=== PATIENT | male | born 1995 | race African-American/Black ===

== ENCOUNTER 2016-12-16 02:05 | Inpatient (IN) | payer OTHER ==
--- OUTSIDE RECORDS SUMMARY | 2016-12-16 02:07 | XMS | Clinical Summary ---
:1995 Author Organization [facility] Address [address] [place] [address] Phone Care Team Providers Name Role Phone , Primary Care Provider Unavailable Allergies Not on File Current Medications Not on file Active Problems Not on file Social History Tobacco Use Types Packs/Day Years Used Date Never Assessed Sex Assigned at Date Recorded Not on file Last Filed Vital Signs Not on file Plan of Treatment Not on file Results Not on filefrom Last 3 Months
[2016-12-16] MEDS ORDERED: Lorazepam 2 MG/ML VIAL ONE (02:08)
[2016-12-16] MEDS ORDERED: Fosphenytoin Sodium 1,500 MG in Sodium Chloride 0.9% 100 ML IVPB SCH (02:45)
[2016-12-16 02:55] LABS: Prothrombin Time 13.3 SEC (12.0-14.7)
[2016-12-16 03:07] LABS: Band 1 % (5-11); Hematocrit 56.1 % (42.0-52.0); Mean Platelet Volume 9.1 fL (7.4-10.4); Neutrophil 52 % (31-61); Red Blood Cell (RBC) Count 6.19 mill/uL (4.00-5.20); White Blood Cell (WBC) Count 10.4 thou/uL (4.8-10.8)
[2016-12-16 03:15] LABS: PTT 20.7 SEC (22.9-36.1)
[2016-12-16 03:25] LABS: AST (SGOT) 37 U/L (5-34); Anion Gap 25 mmol/L (10-20); Protein, Total 9.6 g/dL (6.0-8.3)
[2016-12-16 03:36] LABS: ALT (SGPT) 36 U/L (8-55); Alkaline Phosphatase 192 U/L (Less than 750); BUN (Urea Nitrogen) 18 mg/dL (8.9-20.6); Bilirubin, Total 0.2 mg/dL (0.2-1.2); Calc. Creatinine Clearance 0 mL/min (70-130); Calcium 11.1 mg/dL (7.8-10.44); Carbon Dioxide 16 mmol/L (22-29); Chloride 109 mmol/L (98-107); Estimated GFR-MDRD 59; Globulin 5.3 g/dL (2.4-3.5)
[2016-12-16 04:22] LABS: Amphetamine Not Detected (NotDetected); Methamphetamine Not Detected (NotDetected)
[2016-12-16 04:23] LABS: Methadone Not Detected (NotDetected)
[2016-12-16] MEDS ORDERED: Sodium Chloride 0.9% 100 ML ONE (04:26)
[2016-12-16 04:29] LABS: Glucose, Urine (Dipstick) Negative (Negative); Protein, Urine (Dipstick) > or equal to 300 mg/dL (Neg-Trace)
[2016-12-16 04:30] LABS: Blood, Urine Unable to Interpret (Negative); Nitrite Unable to Interpret (Negative); Urobilinogen UNABLE TO INTERPRET mg/dL (0.2-1.0)
[2016-12-16 04:31] LABS: Bilirubin Negative (Negative); Ketone, Urine Trace mg/dL (Negative)
[2016-12-16 04:33] LABS: RBC/HPF GREATER THAN 50-TNTC HPF (0-3)
[2016-12-16 04:35] LABS: Renal Epithelial 0-3 HPF (0-3)
[2016-12-16 04:36] LABS: Bacteria/HPF Rare-Few HPF (None Seen)
[2016-12-16 04:37] LABS: Hyaline Casts/LPF NONE SEEN LPF (0-3 Hyaline)
[2016-12-16 04:39] LABS: Squamous Epithelial 0-3 HPF (0-3)
[2016-12-16] MEDS ORDERED: Acetaminophen 325 MG TAB PO PRN (05:41)
[2016-12-16] MEDS ORDERED: Ondansetron HCl/PF 4 MG/2 ML Vial IVP PRN (05:41)
[2016-12-16] MEDS ORDERED: Acetaminophen 650 MG Suppository PR PRN (05:41)
[2016-12-16] MEDS ORDERED: Lorazepam 2 MG/ML VIAL SLOW IVP PRN (05:41)
[2016-12-16] MEDS ORDERED: Albuterol Sulfate 2.5 mg/3 ml Neb NEB PRN (05:41)
[2016-12-16] MEDS ORDERED: Levofloxacin 500 mg/D5W 100 ml Premix Bag IVPB SCH (06:00)
--- NOTE | 2016-12-16 06:36 | HP ---
REASON FOR ADMISSION: Status epilepticus. HISTORY OF PRESENT ILLNESS: Please note the majority of this history is obtained by my talking to the patient's parents, both present at bedside, as the patient is nonverbal and is on chronic ventilator. Mom was apparently changing his diaper early this morning when she found blood. She called EMS. When EMS arrived, the patient had a grand mal seizure. They picked him up from [place] and en route he had another episode of seizure. He had a total of 4 episodes of grand mal seizure. These are new in onset. He has significant history of 2 prior strokes, one at 9 years of age and other one at 12 years of age. The one at 12 years of age has severely disabled him and since then he is vent dependent with tracheostomy and PEG feeding. Patient barely opens one eye and is nonverbal. He has received a total of 4 mg of Ativan which has controlled his seizure and on arrival here he was placed on fosphenytoin loading dose. PAST MEDICAL AND SURGICAL HISTORY: History of 2 strokes in the past, one at 9 years of age, which was the first one and 12 years of age, which was a disabling stroke. Per parents, he was born normal and was active until 9 years of age when he sustained the first stroke. PEG tube, tracheostomy, chronic ventilator, diabetes insipidus, hypogonadism, hypopituitarism, hypothyroidism. CURRENT MEDICATIONS: Levothyroxine 77 mcg daily, gentamicin nebulizer 3 times daily, Levsin 1.25 mg sublingual q.6 hours p.r.n., testosterone shots 100 mg intramuscular every 30 days, desmopressin 0.1 mL subcu 2 times daily, albuterol nebulizer q.6 h. p.r.n., hydrocortisone 7.5 mg p.o. twice daily, thiamine 50 mg daily, MiraLax 17 grams daily, multivitamin 1 tab daily, diazepam 3 mg twice daily, Levocarnitine 330 mg 2 times daily. ALLERGIES: Allergic to PAPER DIAPERS, PAPER TAPE. PERSONAL HISTORY: Does not abuse alcohol or drugs. No history of smoking. FAMILY HISTORY: Father has hypertension and diabetes. REVIEW OF SYSTEMS: Cannot be obtained as the patient is nonverbal. PHYSICAL EXAMINATION: GENERAL: The patient is a 21-year-old male who essentially has quadriplegia due to his stroke he sustained when he was 13 years old. VITAL SIGNS: Blood pressure 136/110, pulse 100 per minute, respiratory rate 24 per minute, temperature 100.7 degrees Fahrenheit, saturating 100% on ventilator. NECK: Supple, no elevated JVD. HEENT: Oral cavity; mucous membranes are dry. Patient keeps poking his lips which is normal per family at bedside. He has a tracheostomy in place. CARDIOVASCULAR: S1, S2 heard, tachycardic. RESPIRATORY: Air entry 1+ bilateral. Scattered rhonchi plus bilateral. No wheezes or rales. ABDOMEN: Soft. PEG tube is in place. : Barth catheter has simone blood in it. DREDGE PUMP OPERATOR: The patient is quadriplegic with complete wasting of all 4 extremities including foot drop bilaterally. He has contractures of all 4 extremities as well. PSYCHIATRIC: Cannot be assessed due to the patient being nonverbal. LABORATORY AND X-RAY FINDINGS: White count of 10, H\T\H 18 and 56, platelet count 300 with 52% neutrophils, PT/INR 13 and 1.0, PTT 20, sodium 141. Serum bicarbonate 16, BUN 18, creatinine 1.7, glucose is 67. Lactic acid is 6.0, calcium is 11, albumin is 4.5. Prolactin is 10.2. Urine drug screen is positive for benzodiazepines. CT brain and chest x-ray, official reports are pending. CLINICAL IMPRESSION AND PLAN: The patient will be admitted to ICU for status epilepticus. The patient has known history of massive CVA at the age of 12 and likely the source of his current seizure could be from his prior CVA. He has been loaded up with fosphenytoin and we will continue the same. We will continue all his home medications as before. The patient has panhypopituitarism. He is on hydrocortisone at home. We will switch him over to Solu-Medrol for now. We will consult Pulmonology, Urology and Neurology gis consultant. CODE STATUS: Full. I have discussed this with both parents who are at bedside. We will continue to closely monitor him in ICU. JONNIE
--- NOTE | 2016-12-16 06:51 | CT ---
PRELIMINARY REPORT/[facility]/EMERGENCY AFTER HOURS PROCEDURE: EXAM: CT Head Without Intravenous Contrast CLINICAL HISTORY: 21 years old, male; Signs and symptoms; Altered mental status/memory loss; Confusion or disorientati on; Patient HX: AMS TECHNIQUE: Axial computed tomography images of the head/brain without intravenous contrast. COMPARISON: No relevant prior studies available. FINDINGS: No definite or depressed skull fracture. Included paranasal sinuses appear essentially clear. Mild fluid/opacity in some mastoid air cells bilaterally. This could represent acute or chronic mast oiditis. There are areas of CSF density in the suprasellar region, and medial aspects of the middle cranial f hazel bilaterally. Etiology nonspecific, possibly this could be related to old infarcts or other prior/old brain injury . This could be a developmental appearance. Arachnoid cyst(s) might be another possibility. This is almost surely a chronic appearance. Eventual comparison with any available prior exams may be helpful. No acute intracranial hemorrhage or midline shift. Ventricle size is upper range of normal. No definite acute infarct by CT. MRI could be more sensitive/specific for an acute infarct if clinically indicated. IMPRESSION: No acute intracranial hemorrhage or midline shift. Areas of CSF density in the suprasellar region, and medial aspects of the middle cranial fossa bilat erally. See above discussion. Eventual comparison with any available prior exams may be helpful. No definite acute infarct by CT, see above. Mastoid sinus findings as discussed above. Other details discussed above. Thank you for allowing us to participate in the care of your patient. Dictated and Authenticated by: Sean Cates MD 12/16/2016 3:23 AM Central Time ([place] \T\ Cee) FINAL REPORT ON [facility] STUDY: COMPARISON: MRI of the brain dated 04/23/2008. FINDINGS: Since the comparison examination, post-surgical change involving the left thalamic region with ex va cuole dilatation of the 3rd ventricle appears similar. There is enlargement of both the lateral gregorio tricles as well as the 4th ventricle which may reflect changes of a communicating hydrocephalus. No definite acute infarct is evident. No midline shift is present. There are bilateral mastoid effus ions. IMPRESSION: 1. Increasing prominence of the lateral ventricles as well as the 3rd and 4th ventricles which may r eflect a component of a communicating hydrocephalus. There is prominent cystic dilatation of the 3r d ventricle, slightly more pronounced than on the MRI in 2008. A follow-up MRI of the brain with an d without contrast is recommended for additional evaluation of this finding. Neurosurgical consulta tion is also recommended. 2. Bilateral mastoid effusions. POS: [facility]
--- NOTE | 2016-12-16 07:09 | RAD ---
AP VIEW OF CHEST: Date: 12/16/16 INDICATION: History of bleeding from the penis. COMPARISON: Prior exam dated 12/16/16. FINDINGS: Tracheostomy tube is stable. The previously seen right-sided subclavian central venous catheter has been removed. The lungs are clear. Prominent scoliosis is stable. IMPRESSION: No acute cardiopulmonary process. POS: [facility]
--- NOTE | 2016-12-16 07:31 | RAD ---
AP VIEW OF CHEST: Date: 12/16/16 INDICATION: Bleeding from the penis, status post subclavian central venous catheter placement. IMPRESSION: There is a new right subclavian central venous catheter in place. Tracheostomy tube is unchanged. Nallely ngs are clear. No definite pneumothorax is evident. Thoracic scoliosis is similar. POS: [facility]
[2016-12-16] MEDS: Dextrose 5 % And 0.9 % NaCl 1,000 ML IV SCH ×2 (07:34→14:08)
--- NOTE | 2016-12-16 08:35 | CON ---
DATE OF CONSULTATION: 12/16/2016 INPATIENT CONSULTATION: PRIMARY CARE PHYSICIAN: Dr. Villarreal. REASON FOR CONSULTATION: Genitourinary consultation for hematuria. HISTORY OF PRESENT ILLNESS: Aldo is a 21-year-old -[place]ian male, whom I had seen initially as an ER consultation back in 01/2016 for gross hematuria. The patient with extensive complicated history. He presented at that time with gross hematuria, renal insufficiency, workup demonstrated evidence of hemorrhagic cystitis, bladder biopsy negative for malignancy. The patient is managed by his family with clean intermittent catheterization for neurogenic bladder. Patient has transferred his care to [facility] with Dr. Chava Pinto. He is currently admitted as EMS brought the patient due to acute seizure activity. The patient was also noted to have some blood in his diaper per review of chart. Family is not around the bedside at this time. The patient is currently in ICU setting due to status epilepticus with history of CVA at age 12. The patient does have a history of CVA, multiple strokes, quadriplegic, tracheostomy and PEG dependent. He also has a history of adrenal insufficiency, diabetes insipidus, and is nonverbal. He does have extensive family support, who manages his neurogenic bladder with CICs. Prior CT scan dating 01/2016 demonstrated [id number] hydroureteronephrosis to the level of the bladder with thickened bladder wall, which was chronic in nature. Lasix renal scan demonstrated no evidence of obstructive component and hydronephrosis is due to noncompliant neurogenic bladder. He did undergo workup for hematuria, cystoscopy demonstrating diffuse hemorrhagic cystitis with trabeculation, bladder neck open consistent with neurogenic bladder. Bladder biopsies were negative for malignancy. I informed the family on last admission to continue his Levsin [id number] every 4 to 6 hours and CIC, as they have been performing in the past. Subsequently, he has transferred his care to [facility]. PAST MEDICAL HISTORY: Encephalopathy, quadriplegic, since 07/2007 secondary to multiple CVA; respiratory failure, on chronic tracheostomy/ventilator support; history of CVA at 9 years of age; history of central diabetes insipidus; panhypopituitarism; diabetes, type 2; history of gross hematuria; neurogenic bladder; history of nonobstructing right hydronephrosis, on renal scan; history of hypogonadism, on testosterone replacement by a pediatric bursar, Dr. Tirado, in [place]. PAST SURGICAL HISTORY: Tracheostomy/G-tube , 01/2016, status post cystoscopy, random bladder biopsy, right retrograde pyelogram. CURRENT MEDICATIONS: Tylenol, Ventolin, DDAVP, Pepcid, Levsin 0.25 mg sublingual every 6 hour as scheduled, currently on Levaquin, Ativan, Solu-Medrol , Zofran, thiamine. ALLERGIES: Allergic to PAPER DIAPERS, PLASTIC TAPE. PHYSICAL EXAMINATION: GENERAL: The patient is nonverbal, on tracheostomy. Spontaneous movement of extremities as noted. VITAL SIGNS: 136/110-100, pulse 24, temperature 100.7 on admission. There is no current vital signs in chart. GENERAL: The patient on tracheostomy, nonverbal. HEENT: Mucous members are dry. ABDOMEN: Soft, protuberant. PEG tube is in place. GENITOURINARY: A 16-Lux[place]bourgish Barth catheter draining pink urine. I irrigated the Barth catheter at bedside with no evidence of clots. PERTINENT LABS AND IMAGIN. White count 10, hemoglobin 18, platelets 300. INR is 1.0, PTT of 20. Admitting creatinine of 0.78, baseline creatinine variable from 0.9-1.8. Urinalysis demonstrates red urine, greater than 300 protein, unable to interpret leukocytes, greater than 50 RBCs, 4-6 WBCs, no epithelials, rare bacteria. Cultures have been sent by the emergency room. 2. CT of the brain on admission demonstrates prominence of the lateral ventricles as well as third and fourth ventricle reflecting a component of communicating hydrocephalus. No definite acute infarct is appreciated. 3. CT of the abdomen and pelvis, 01/2016, [id number] right hydroureteronephrosis to the level of the bladder with thickened bladder wall, stable in comparison from prior CT. 4. Lasix renal scan, 01/2016, no gross evidence of obstruction. IMPRESSION AND PLAN: Aldo is a 21-year-old male with history of multiple comorbidities, respiratory failure, multiple cerebrovascular accidents, quadriplegic, tracheostomy and PEG dependent. Urologic consultation obtained due to hematuria. This has been worked up in the past with no evidence of malignancy, no evidence of functional obstruction. DVT prophylaxis, anticoagulation on hold as he has evidence of hematuria. H/o Neurogenic bladder, likely low compliance with secondary hydroureteronephrosis. Workup demonstrated no evidence of functional obstruction. Previous cystoscopy and bladder biopsy negative for malignancy. Patient currently admitted for hematuria, which is mild in nature at this time with pink-tinged urine. Urine culture has been sent, currently on Levaquin. I do recommend indwelling Barth catheter for now, to monitor urine output and renal function. Continue Levsin as scheduled [id number] for bladder spasms. When the patient is discharged, he will resume his care with his urologist,, resume CIC by family as previous; family has transferred his care from my practice. JONNIE
[2016-12-16] MEDS ORDERED: LEVOCARNITINE 330 MG PO SCH (09:00)
[2016-12-16] MEDS: Hyoscyamine Sulfate SL 0.125 mg Tablet SL SCH ×4 (09:16→20:52)
[2016-12-16] MEDS: LEVOCARNITINE 330 MG PO SCH (09:16)
[2016-12-16] MEDS: Famotidine/PF 20 mg/2ml Vial SLOW IVP SCH ×2 (09:16→20:49)
--- NOTE | 2016-12-16 09:57 | PDOC.PN ---
- Subjective Encounter Start Date: 12/16/16 Encounter Start Time: 09:55 Subjective: nonverbal, no seizure activity - Objective Resuscitation Status: Resuscitation Status FULL:Full Resuscitation MAR Reviewed: Yes Vital Signs & Weight: Vital Signs (12 hours) Temp Pulse Resp Pulse Ox 12/16/16 07:45 97.3 F L 113 H 12 100 12/16/16 07:44 97.3 F L 12/16/16 06:41 97.6 F Weight Weight 102 lb 1.184 oz Most Recent Monitor Data Heart Rate from ECG 112 NIBP 118/95 NIBP BP-Mean 103 Respiration from ECG 12 SpO2 100 I&O: 12/15/16 12/16/16 12/17/16 06:59 06:59 06:59 Output Total 900 200 Balance -900 -200 Result Diagrams: 12/16/16 02:35 12/16/16 02:35 Phys Exam - Physical Examination Constitutional: NAD Neck: no JVD Respiratory: clear to auscultation bilateral Cardiovascular: RRR, no significant murmur Gastrointestinal: soft, positive bowel sounds Musculoskeletal: no edema contracted hands, feet Dx/Plan (1) Status epilepticus Code(s): G40.901 - EPILEPSY, UNSP, NOT INTRACTABLE, WITH STATUS EPILEPTICUS Status: Acute (2) Chronic respiratory failure Code(s): J96.10 - CHRONIC RESPIRATORY FAILURE, UNSP W HYPOXIA OR HYPERCAPNIA Status: Chronic Qualifiers: Respiratory failure complication: unspecified whether with hypoxia or hypercapnia Qualified Code(s): J96.10 - Chronic respiratory failure, unspecified whether with hypoxia or hypercapnia (3) Hematuria Code(s): R31.9 - HEMATURIA, UNSPECIFIED Status: Acute Qualifiers: Hematuria type: unspecified type Qualified Code(s): R31.9 - Hematuria, unspecified (4) CVA, old, dysphagia Code(s): I69.391 - DYSPHAGIA FOLLOWING CEREBRAL INFARCTION Status: Chronic Comment: PEG tube in place (5) Diabetes insipidus Code(s): E23.2 - DIABETES INSIPIDUS Status: Chronic (6) Polycythemia Code(s): D75.1 - SECONDARY POLYCYTHEMIA Status: Chronic Comment: May be related to chronic respiratory failure(Hypoxemia) or underlying myeloproliferative process. - Plan cont iv dilantin -: cont vent(chronic-homebound) -: await consultants opinions * .
[2016-12-16] MEDS: Fosphenytoin Sodium 100 MG in Sodium Chloride 0.9% 50 ML IVPB SCH ×2 (10:17→18:08)
--- NOTE | 2016-12-16 12:04 | CON ---
DATE OF CONSULTATION: 12/16/2016 Aldo Arteaga is an unfortunate 21-year-old gentleman who has been on home vent for the last 10 year s following a cerebrovascular accident. His nurse works with him for many years, who is at the bedside, he tells me that the patient has had strokes in the past with a history of previous grand mal seizures. The present episode, according to him he was having some hematuria and was brought to the ER. He apparently seized, he was given A tivan. He is now in ICU on the vent. Apparently he received a total of 4 mg of Ativan, controlled his seizures. Neurology was consulted. EEG is being ordered. PAST MEDICAL HISTORY: Past medical history is currently outlined, previous cerebrovascular acciden t, disabling. He has been vent dependent, feeding dependent with a trach tube and PEG in place. He additionally has had previous evidence of hypothyroidism and hypopituitarism. SOCIAL HISTORY: No evidence of any alcohol or tobacco abuse. MEDICATIONS LIST: Carnitor, thiamine, testosterone 100 mg, potassium, MiraLax, Synthroid 137, hydro cortisone 100 IM, hydrocortisone 7.5 twice a day, gentamicin 80 mg inhalation treatment 3 times a da y. Diazepam, DDAVP (desmopressin acetate) 0.1 0.1 SC b.i.d., albuterol inhaler. It appears he will be started back on his usual home medications plus he was getting Dilantin. ALLERGIES: Apparently none. PHYSICAL EXAMINATION: GENERAL: He is on the vent, pretty much unresponsive which is chronic as per the imcu specialist. VITAL SIGNS: Pulse 101, blood pressure 106/60, sats 100%, respirations 12. CHEST: Chest revealed decreased breath sounds, no wheezing. CARDIAC: Normal S1, S2. No gallops. Creatinine 1.78. His lactic acid is 2.3, white count 10,000, H\T\H 8 and 56 His chest x-ray shows trach in place, elevated left hemidiaphragm, but no other infiltrates were see n. He had a CT brain done yesterday which showed increasing prominence of lateral ventricles. There is some suggestion of hydrocephalus. Awaiting Neurology input. IMPRESSION: 1. Chronic respiratory failure secondary to a cerebrovascular accident. 2. Chronically elevated left hemidiaphragm. 3. Feeding tube, PEG in place. 4. Seizure disorder. 5. Abnormal MRI. PLAN: Awaiting for Neurology. Pulmonary butler, continue vent support, neb treatments. I will notif y Dr. Naidu. One-half critical care time.
[2016-12-16] MEDS ORDERED: FLU VACC QS2017-18 36 mo. & older 0.5 ML SYRINGE IM ONE (21:00)
[2016-12-17] MEDS: Hyoscyamine Sulfate SL 0.125 mg Tablet SL SCH ×6 (00:47→21:33)
[2016-12-17] MEDS: Fosphenytoin Sodium 100 MG in Sodium Chloride 0.9% 50 ML IVPB SCH (01:44)
[2016-12-17 04:10] LABS: #Lymphocytes 2.1 thou/uL (1.20-3.40); #Monocytes 0.3 thou/uL (0.11-0.59); #Neutrophils 8.1 thou/uL (1.40-6.50); %Basophils 0.1 % (0.0-1.0); %Eosinophils 0.4 % (0.0-10.0); %Monocytes 3.2 % (0.0-4.0); Hematocrit 41.8 % (42.0-52.0); Mean Platelet Volume 9.2 fL (7.4-10.4); Red Blood Cell (RBC) Count 4.56 mill/uL (4.00-5.20); White Blood Cell (WBC) Count 10.7 thou/uL (4.8-10.8)
[2016-12-17 04:24] LABS: ALT (SGPT) 16 U/L (8-55); AST (SGOT) 14 U/L (5-34); Alkaline Phosphatase 121 U/L (Less than 750); Anion Gap 11 mmol/L (10-20); BUN (Urea Nitrogen) 15 mg/dL (8.9-20.6); Bilirubin, Total Less than 0.2 mg/dL (0.2-1.2); Calc. Creatinine Clearance 52 mL/min (70-130); Calcium 9.4 mg/dL (7.8-10.44); Carbon Dioxide 15 mmol/L (22-29); Chloride 127 mmol/L (98-107); Estimated GFR-MDRD 74; Globulin 3.1 g/dL (2.4-3.5); Protein, Total 6.2 g/dL (6.0-8.3)
[2016-12-17] MEDS ORDERED: Levofloxacin 500 mg/D5W 100 ml Premix Bag IVPB SCH (05:00)
--- NOTE | 2016-12-17 07:17 | PRG ---
DATE OF SERVICE: 12/17/2016 SUBJECTIVE: No change, the patient is nonverbal. PHYSICAL EXAMINATION: VITAL SIGNS: Vital signs are stable, afebrile. Urine output 1670, it has been clear. GENITOURINARY: Barth catheter is adequately secured. LABORATORY DATA: White blood cell count 10, hemoglobin 13, platelets 242, BUN 15, creatinine improved to 1.4. IMPRESSION AND PLAN: 1. Aldo is a 21-year-old male admitted for status epilepticus, urologic history of neurogenic bladder. 2. History of hematuria. Previous workup biopsy negative for malignancy, from a urologic perspective, when patient is discharged, will resume CIC as previously, his family has been performing clean intermittent catheterization. Follow up with [facility] upon discharge. Urine culture pending. Continue indwelling Barth catheter for now. MTDD
--- NOTE | 2016-12-17 07:20 | PRG ---
DATE OF SERVICE: 12/17/2016 The patient remains in the CCU. He is chronically on mechanical ventilation through a tracheostomy tube. He is demonstrating gum smacking-type movements. We are not sure whether or not this is his baseline neurological status or not. PHYSICAL EXAMINATION: VITAL SIGNS: On exam, his temperature is 98.2, pulse 56, blood pressure 98/53. A 24-hour intake 28 04, output 1670. HEENT: Remarkable for the gum smacking. NECK: Tracheostomy in good position. CHEST: He has a right subclavian central line. Lungs are otherwise clear. CARDIAC: S1 and S2 regular. ABDOMEN: Soft. PEG tube in place. EXTREMITIES: No edema. LABORATORY DATA: White blood cell count 10.7, hemoglobin 13.7, hematocrit 41.8, platelet count 242. Sodium 150, potassium 3.3, chloride 127, CO2 of 15, BUN 15, creatinine 0.4, glucose 223. Urinalys is showed too numerous to count red blood cells at the time of admission. Phenytoin level was 32. ASSESSMENT: 1. Seizure disorder. 2. Chronic respiratory failure, requiring mechanical ventilation. 3. Cerebrovascular accident. 4. Diabetes insipidus. PLAN: 1. The patient needs more free water than what he is getting. 2. We would stop the Levaquin and start a different antibiotic, because Levaquin lowers seizure thr eshold. It is not completely clear to me why he is on antibiotics at this time. 3. He can probably go home when okay with Neurology.
[2016-12-17] MEDS: Cefdinir 300 MG CAP PER TUBE SCH (08:50)
[2016-12-17] MEDS: Famotidine 20 MG TAB PER TUBE SCH ×2 (08:51→21:28)
[2016-12-17] MEDS: LEVOCARNITINE 330 MG PO SCH (08:54)
--- NOTE | 2016-12-17 09:21 | CON ---
DATE OF CONSULTATION: 12/16/2016 LOCATION: CCU C2 CONSULTING PHYSICIAN: Dr. Cota REASON FOR CONSULTATION: Seizures. HISTORY OF PRESENT ILLNESS: The history is obtained from the chart review and from the patient's parents who were present at bedside. The patient is not able to provide history. The patient is a 21-year-old male with a history of 2 strokes in the past, 1 stroke at age 9 and the second stroke at age 12 who takes baby aspirin at home, who is at baseline nonverbal and is on chronic ventilator and PEG tube, who is bed bound and requires total care. According to the parents he was completely normal up until age 9 and he has history of PEG tube and tracheostomy, chronic ventilator, diabetes insipidus, hypogonadism, hypopituitarism, hypothyroidism. According to the parents on the morning of admission mom was apparently changing the diaper when she found blood in the urine and it got worse over time and subsequently they noticed seizure that he was shaking all over, which lasted for 2-3 minutes. His blood pressure and his heart rate went up, he was not foaming at the mouth, no tongue biting. EMS picked him up from [facility] and en route he had another episode of seizure and he had 1 more in the ER, but according to the documentation, he had a total of 4 episodes of generalized, possibly grand mal seizures. They are new in onset. They denied any previous history of seizures. He was subsequently transferred to the [facility] and was admitted for further treatment. Since he has been admitted to the CCU they have not noticed any more seizure activity. According to the parents, at baseline, he has constant twitching of his mouth which is his baseline and chronic in nature. This is not acute and whenever there is stimulation he has generalized shaking for a few seconds only and then it stops. The parents state that the episode that he had this time were different from his usual shaking episodes with stimulation because the new episodes lasted for a long time and his heart rate and his blood pressure increased with the new episode. He had received a total of 4 mg of Ativan which controlled his seizures and on arrival he was also loaded with fosphenytoin and since he has been in the ICU there has been no more seizure activity. PAST MEDICAL AND SURGICAL HISTORY: As mentioned in the HPI. HOME MEDICATIONS: Please review the chart. ALLERGIES: PAPER DIAPERS and PAPER TAPE. PERSONAL HISTORY: No alcohol use, illicit drug use or smoking. FAMILY HISTORY: Hypertension and diabetes. REVIEW OF SYSTEMS: Unable to obtain. PHYSICAL EXAMINATION: VITAL SIGNS: Temperature 97.5, pulse rate 77, blood pressure 105/62, respiratory rate 12, O2 sats 100%. The patient was on chronic home ventilator, he was not on any sedation. GENERAL: Well-developed, well-nourished male in no apparent distress. HEENT: Normocephalic, atraumatic. Normal sclerae. NECK: Supple. RESPIRATORY: Clear to auscultation bilaterally. CARDIOVASCULAR: Regular rate and rhythm. NEUROLOGIC: The patient has tracheostomy and is on chronic ventilator. He is not on any sedation. He does not open his eyes to verbal or tactile stimulation. His right eye was looking straight ahead and his left eye was slightly deviated to the left, but there was no nystagmus noted. No forced deviation of eyes noted. Pupils were 5 mm bilaterally and sluggishly reactive to light which according to the parents is his baseline. The patient had twitching movements of his mouth which is chronic and baseline. No spontaneous movements noted. No tonic clonic activity noted. The patient had contractures of his hands and feet. Even with painful stimulation, there was no significant change noted except he had some brief shaking of his legs with stimulation. There was one time generalized trembling like shaking of his body noted which only lasted for a few seconds, did not appear to be seizure in nature. It was without stimulation. LABORATORY DATA: CBC with normal white cell count. Chemistry: Normal sodium, potassium, creatinine 1.78, GFR 59, glucose 67, calcium 11.1. LFTs with AST 37. Prolactin 10.21. Urinalysis showed protein, ketones and greater than 50 RBCs and 4-6 WBCs. Urine drug screen detected benzos. IMAGING: The patient had CT head done on admission, which did not show any acute intracranial hemorrhage or midline shift. No definite acute infarct. The final report mentioned is increased prominence of lateral ventricle as well as third and fourth ventricle which may reflect a component of communicating hydrocephalus, slightly more pronounced than on MRI in 2009. IMPRESSION: 1. Generalized tonic clonic seizures reported by history, new onset in nature. 2. History of strokes in the past. 3. Nonverbal, bedbound, requiring total assistance and care at baseline. RECOMMENDATIONS: 1. EEG was ordered, which does not show electrographic seizures, with the shaking episode that were recorded on the EEG it showed only EMG activity with those events, did not show seizure or epileptiform activity with those events, there are some spike activity noted, it is not clear whether this are epileptiform in nature or whether they are electrode artifact. 2. Agree with continuing the patient on Dilantin 100 mg t.i.d. IV and checking total and free Dilantin levels and adjusting his Dilantin dose based on the levels. Since this is a new onset seizures, we will see how he responds to Dilantin antiepileptic medication. 3. The facial twitching is chronic in nature and is present even at baseline, so at this point, we will wait and see how he responds to Dilantin. If needed Dilantin dose can be either maximized and a second antiepileptic medication can be added to see if the facial twitching can be controlled, but would not recommend being too aggressive in controlling that since they are chronic in nature. 4. Based on the CT scan report, the patient may benefit with MRI of the brain. 5. Continue medical management per primary team. 6. Please call us with questions. MTDD
--- NOTE | 2016-12-17 10:25 | PDOC.PN ---
- Subjective Encounter Start Date: 12/17/16 Encounter Start Time: 10:23 Subjective: nonverbal - Objective Resuscitation Status: Resuscitation Status FULL:Full Resuscitation MAR Reviewed: Yes Vital Signs & Weight: Vital Signs (12 hours) Temp Pulse Resp Pulse Ox 12/17/16 08:00 96.6 F L 58 L 12 98 12/17/16 07:00 96.6 F L 12/17/16 04:00 98.2 F 12 12/17/16 00:00 98.0 F 12 Weight Weight 102 lb 1.184 oz Most Recent Monitor Data Heart Rate from ECG 56 NIBP 97/58 NIBP BP-Mean 72 Respiration from ECG 14 SpO2 100 I&O: 12/16/16 12/17/16 12/18/16 06:59 06:59 06:59 Intake Total 2804 200 Output Total 900 1670 105 Balance -900 1134 95 Result Diagrams: 12/17/16 03:45 12/17/16 03:45 Phys Exam - Physical Examination Constitutional: NAD Neck: no JVD Respiratory: clear to auscultation bilateral Cardiovascular: RRR, no significant murmur Gastrointestinal: soft, positive bowel sounds Musculoskeletal: no edema Dx/Plan (1) Status epilepticus Code(s): G40.901 - EPILEPSY, UNSP, NOT INTRACTABLE, WITH STATUS EPILEPTICUS Status: Acute (2) Chronic respiratory failure Code(s): J96.10 - CHRONIC RESPIRATORY FAILURE, UNSP W HYPOXIA OR HYPERCAPNIA Status: Chronic Qualifiers: Respiratory failure complication: unspecified whether with hypoxia or hypercapnia Qualified Code(s): J96.10 - Chronic respiratory failure, unspecified whether with hypoxia or hypercapnia (3) Hematuria Code(s): R31.9 - HEMATURIA, UNSPECIFIED Status: Acute Qualifiers: Hematuria type: unspecified type Qualified Code(s): R31.9 - Hematuria, unspecified (4) CVA, old, dysphagia Code(s): I69.391 - DYSPHAGIA FOLLOWING CEREBRAL INFARCTION Status: Chronic Comment: PEG tube in place (5) Diabetes insipidus Code(s): E23.2 - DIABETES INSIPIDUS Status: Chronic (6) Polycythemia Code(s): D75.1 - SECONDARY POLYCYTHEMIA Status: Chronic Comment: May be related to chronic respiratory failure(Hypoxemia) or underlying myeloproliferative process. - Plan dilantin level 32, hold rpt level in am -: xavier rec MRI brain-ordered, NS consult post MRI * .
[2016-12-17] MEDS ORDERED: Polyethylene Glycol 3350 17 GM Packet PER TUBE SCH (10:30)
[2016-12-17 11:50] VITALS: BMI 18.8
[2016-12-17] MEDS ORDERED: Sodium Bicarbonate Tab 325 MG TAB PER TUBE PRN (21:11)
[2016-12-17] MEDS ORDERED: Pancrelipase DR 12000 1 CAP FS PRN (21:11)
[2016-12-17] MEDS: Hydrocortisone 10 mg Tablet PO SCH (21:27)
[2016-12-17] MEDS: Diazepam 2 MG TAB PO SCH (21:32)
[2016-12-18] MEDS: Hyoscyamine Sulfate SL 0.125 mg Tablet SL SCH ×4 (01:04→12:15)
[2016-12-18 04:31] LABS: Anion Gap 10 mmol/L (10-20); BUN (Urea Nitrogen) 18 mg/dL (8.9-20.6); Calc. Creatinine Clearance 61 mL/min (70-130); Calcium 9.1 mg/dL (7.8-10.44); Carbon Dioxide 17 mmol/L (22-29); Chloride 124 mmol/L (98-107); Estimated GFR-MDRD 88
[2016-12-18 04:55] LABS: Dilantin 31.6 ug/mL (10.0-20.0)
[2016-12-18] MEDS ORDERED: Levothyroxine Sodium 25 MCG TAB PO SCH (06:00)
[2016-12-18] MEDS ORDERED: Levothyroxine Sodium 112 MCG TAB PO SCH (06:00)
[2016-12-18] MEDS: Cefdinir 300 MG CAP PER TUBE SCH (07:45)
[2016-12-18] MEDS: Diazepam 2 MG TAB PO SCH (07:45)
[2016-12-18] MEDS: Famotidine 20 MG TAB PER TUBE SCH (07:46)
[2016-12-18] MEDS: Hydrocortisone 10 mg Tablet PO SCH (07:46)
[2016-12-18] MEDS: LEVOCARNITINE 330 MG PO SCH (07:47)
--- NOTE | 2016-12-18 08:08 | PRG ---
DATE OF SERVICE: 12/18/2016 SUBJECTIVE: He is about the same. He has no change overnight. PHYSICAL EXAMINATION: VITAL SIGNS: Temperature is 97.3, pulse 51, blood pressure 107/75, 24-hour intake 1280, output 665. HEENT: Still has facial twitching movements. NECK: Tracheostomy in good position. LUNGS: Clear to auscultation. CARDIAC: S1 and S2 regular. ABDOMEN: Soft and nontender. EXTREMITIES: No edema. LABORATORY DATA: Sodium 147, potassium 4.0, chloride 124, CO2 17, BUN 18, creatinine 1.2, and gluco se 94. ASSESSMENT: 1. Seizure disorder. 2. Chronic respiratory failure requiring mechanical ventilation. 3. Cerebrovascular accident. 4. Diabetes insipidus. PLAN: 1. His sodium has improved with the increase in his free water yesterday. 2. I believe his facial twitching is considered chronic and likely nothing further can be done abou t that at this time. 3. The patient is stable to go home from a respiratory standpoint at anytime. Family is fully awar e of how to operate the home ventilator. 4. Continue free water for his diabetes insipidus as well as his DDAVP.
[2016-12-18] MEDS ORDERED: Multivit, Pediatric w/ Fe Liq 50 ML BOT PO SCH (09:00)
--- NOTE | 2016-12-18 10:41 | PRG ---
DATE OF SERVICE: 12/18/2016 PROGRESS NOTE SUBJECTIVE: No change in mental status. PHYSICAL EXAMINATION: VITAL SIGNS: Stable, afebrile. Urine output is 1450. GENITOURINARY: Barth catheter draining pink tinged urine. I did irrigate the catheter at bedside demonstrating no significant clots. LABORATORY DATA: Urine culture demonstrates mixed cheryl. Creatinine is 1.2. IMPRESSION AND PLAN: 1. Aldo is a 21-year-old -[place] male with history of current admission due to status epilepticus. 2. History of cerebrovascular accident. 3. Quadriplegic, vent dependent. Prior hematuria workup negative for malignancy, patient has tendency for intermittent hematuria. 4. Neurogenic bladder with low compliance, with secondary hydronephrosis; not functional obstruction. The patient is to resume CIC when dc which has been performed by his family as he has great family support. He has transferred his urologic care at [facility] with Dr. Chava Pinto. Recommend patient follow up with [facility] next 1-2 week. The patient will likely be dc home today per ICU service. Dr Galdamez covering me this weekend MTDD
[2016-12-18 12:10] VITALS: TEMP 95
--- NOTE | 2016-12-18 19:00 | PDOC.EVN ---
Event Note - Event Note Event Note: d/c summary dictated # [id number]
--- NOTE | 2016-12-18 19:52 | DIS ---
DATE OF ADMISSION: 12/16/2016 DATE OF DISCHARGE: 12/18/2016 DISCHARGE DIAGNOSES: 1. Seizure disorder, controlled. 2. Old cerebrovascular accident. 3. Chronic respiratory failure. 4. Resolved hematuria. 5. Resolved status epilepticus. 6. Diabetes insipidus. 7. Urinary tract infection. 8. Polycythemia. 9. Functional quadriparesis. CONSULTANTS: Neurology, Pulmonary/Critical Care, Urology. MEDICATIONS: Reviewed. Please refer to discharge medications. HOSPITAL COURSE: The patient is a 21-year-old male with past medical history significant for multip le stroke as a child, chronic respiratory failure on home ventilator, hypothyroidism, dysphagia, sta tus post PEG, status post trach, diabetes insipidus, hypopituitarism, and hypogonadism. Patient was initially admitted from the emergency room after mother noted hematuria. He also started having mu ltiple seizures in the emergency room and was diagnosed with status epilepticus. In the ER, the pat ient was given IV Dilantin and his seizures resolved. The patient was seen by the Neurology, Pulmon yumiko and Urology Service. He underwent Barth insertion by Urology service and the bladder irrigation . The patient improved. His hematuria resolved. His seizures became controlled. The patient was seen by the Neurology service and recommended to continue with Dilantin. Patient also has chronic f acial twitching for which no intervention was recommended. EEG was negative. The patient was wilfredo nued on the home ventilator setting by Pulmonary Service. Patient's hematuria resolved. The patien t was placed on p.o. antibiotic. Dilantin level was elevated, so Dilantin was held and will be rest arted as an outpatient. Patient was discharged to home in stable condition on 12/18/2016. He will be followed by the home health service. Family is aware of intermittent clean catheterization. Ant ibiotics will be continued at home. DISCHARGE CONDITION: Stable on home vent setting.
== END 2016-12-18 14:30 | disposition home health service (06) | DRG 100 ==
LOC: ERS 02:05 → CCU 05:35
PROVIDERS: ADMIT Internal Medicine; ATTEND Internal Medicine
DX: G40.901 Epilepsy, unspecified, not intractable, with status epilepticus (principal); R53.2 Functional quadriplegia; E23.2 Diabetes insipidus; J96.10 Chronic respiratory failure, unspecified whether with hypoxia or hypercapnia; Z93.0 Tracheostomy status; Z99.81 Dependence on supplemental oxygen; E23.0 Hypopituitarism; N13.30 Unspecified hydronephrosis; N39.0 Urinary tract infection, site not specified; D75.1 Secondary polycythemia; N31.9 Neuromuscular dysfunction of bladder, unspecified; I69.391 Dysphagia following cerebral infarction; I69.398 Other sequelae of cerebral infarction; R93.0 Abnormal findings on diagnostic imaging of skull and head, not elsewhere classified; E03.9 Hypothyroidism, unspecified; R31.9 Hematuria, unspecified; Z91.048 Other nonmedicinal substance allergy status; Z83.3 Family history of diabetes mellitus; Z82.49 Family history of ischemic heart disease and other diseases of the circulatory system
CPT/HCPCS: 36415; 36556; 51703; 70450; 71010; 80048; 80053; 80185; 80306; 81003; 81015; 83605; 84146; 85025; 85610; 85730; 87040; 87086; 90471; 90682; 93005; 94002; 95816; 95819; 96361; 96365; 96366; 96367; 96375; G0008; J1956; J2060; J2597; J2920; J7050; Q2009; Q2036; S0028

== ENCOUNTER 2017-08-04 16:30 | Emergency (ER) | payer OTHER ==
[2017-08-05 08:49] LABS: CO2 Tension (PvCO2) 137.7 mmHg (41.0-51.0); O2 Tension (PvO2) 23.1 mmHg (35.0-45.0); pH (Venous) 6.952 (7.35-7.45)
[2017-08-05 08:50] LABS: Base Excess-Venous -4.6 mmol/L (0 (+/- 2.5)); Bicarbonate (HCO3v) 30.4 mmol/L (1.0-85.0); Calcium, Ionized 0.56 mmol/L (1.12-1.32); T. Carbon Dioxide 34.6 mmol/L (1.0-85.0); vO2 Saturation-calc 16.8 % (94-98)
[2017-08-05] MEDS ORDERED: EPINEPHrine 1 MG/10 ML Abboject SYRINGE ONE (21:26)
== END 2017-08-04 16:42 | disposition expired ==
LOC: ERS 16:30
DX: I46.9 Cardiac arrest, cause unspecified (principal); E03.9 Hypothyroidism, unspecified; E23.0 Hypopituitarism; E23.2 Diabetes insipidus; Z86.73 Personal history of transient ischemic attack (TIA), and cerebral infarction without residual deficits
CPT/HCPCS: 36416; 82330; 82435; 82803; 84295; 92950; 96374; 96375; 96376